=== PATIENT | male | born 1945 | race Caucasian/White ===

== ENCOUNTER 2017-01-23 06:54 | Day surgery (SDC) | payer MEDICARE ==
[2017-01-23 07:22] VITALS: BMI 31.3
--- NOTE | 2017-01-23 08:01 | CP.SDSHP ---
Same Day Surgery H & P - History Proposed Procedure: COLONSCOPY Pre-Op Diagnosis: SEE NOTES - Previous Medical/Surgical History Cardiac: Hypertension Endocrine/Metabolic: Diabetes, Other Neuro: Backaches Misc: Other Pain: 2.Mild Pain - Allergies Allergies: Allergies No Known Allergies Allergy (Verified 01/23/17 07:22) - Physical Exam General Appearance: N Vital Signs: Vital Signs 01/23/17 07:38 Temperature 97.1 F L Pulse Rate 79 Respiratory 16 Rate Blood Pressure 143/65 O2 Sat by Pulse 99 Oximetry Mental Status: Alert & Oriented x3 Neuro: WNL Heart: Other Lungs: WNL GI: WNL - {Optional Preform as Required} Breast: WNL Abdomen: Other Rectal: WNL Integument: WNL : Other Ortho: Other ENT: WNL - Impression Pt. Evaluated Today:Candidate for Anesthesia & Procedure: Yes - Date & Time Time: 08:00 Short Stay Discharge - Short Stay Discharge Admitting Diagnosis/Reason for Visit: SCREENING FOR MALIGNANT NEOPLASM OF COLON Disposition: HOME/ ROUTINE
[2017-01-23] MEDS ORDERED: Belladonna-Phenobarbital PO ONE (08:02)
[2017-01-23] MEDS ORDERED: Midazolam 2 MG/2 ML VIAL ONE (08:05)
[2017-01-23] MEDS ORDERED: Propofol 10 mg/ml Inj (20 ML) ONE (08:05)
[2017-01-23] MEDS ORDERED: Pantoprazole 40 mg EC Tab PO ONE (08:15)
[2017-01-23 08:32] VITALS: TEMP 97.8; O2SAT 100
[2017-01-23 09:44] VITALS: BP 116/73; PULSE 75; RESP 12
== END 2017-01-23 09:35 | disposition home or self-care (01) ==
LOC: C.ENDO 06:54
PROVIDERS: ATTEND Specialist
DX: K52.9 Noninfective gastroenteritis and colitis, unspecified (principal); K58.9 Irritable bowel syndrome, unspecified; K64.8 Other hemorrhoids
CPT/HCPCS: 45380; 82948; 88305; J2250; J2704

== ENCOUNTER 2019-01-10 17:32 | Outpatient (CLI) | payer MEDICARE | END 2019-01-10 17:33 | disposition home or self-care (01) | LOC: C.RADIC 17:32 ==

== ENCOUNTER 2019-01-11 08:19 | Outpatient (CLI) | payer MEDICARE | END 2019-01-11 08:20 | disposition home or self-care (01) | LOC: C.CTH 08:20 ==